=== PATIENT | male | born 1975 | race Hispanic/Latino ===

== ENCOUNTER 2022-09-05 21:07 | Emergency (ER) | payer OTHER ==
[~2022-09-05] VITALS: Ht 165.1 cm; Wt 92.1 kg
[2022-09-05] MEDS ORDERED: ONDANSETRON 4MG INJ IVP ONE (22:30)
[2022-09-05] MEDS ORDERED: 0.9%NACL 1000ML 1,000 ML IV ONE (22:30)
[2022-09-05 23:12] LABS: BASOPHILS % (AUTO) 0.3 % (0.0-5.0); EOSINOPHILS % (AUTO) 2.5 % (0.0-8.0); HEMATOCRIT 43.9 % (42-54); LYMPHOCYTES % (AUTO) 17.9 % (21.0-51.0); MEAN CORPUSCULAR HEMOGLOBIN 28.5 pg (27.0-33.0); MEAN CORPUSCULAR HGB CONC 33.9 g/dL (32.0-36.0); MEAN CORPUSCULAR VOLUME 83.9 fL (79-99); MONOCYTES % (AUTO) 7.1 % (3.0-13.0); NEUTROPHILS % (AUTO) 71.9 % (40.0-77.0); PLATELET COUNT (AUTO) 348 K/uL (130-400); RED BLOOD CELL COUNT(AUTO) 5.23 MIL/uL (4.50-6.20); RED CELL DISTRIBUTION WIDTH 12.5 % (11.0-15.5)
[2022-09-05 23:22] LABS: POTASSIUM 3.9 mmol/L (3.5-5.1)
[2022-09-05 23:27] LABS: ALBUMIN 4.1 g/dL (3.5-5.0); TOTAL PROTEIN, SERUM 8.3 g/dL (6.0-8.3)
[2022-09-05 23:27] LABS: APPEARANCE,URINE CLEAR (CLEAR); BILIRUBIN,URINE NEGATIVE (NEGATIVE); COLOR,URINE YELLOW (YELLOW); GLUCOSE, URINE (UA) NEGATIVE (NEGATIVE); KETONES,URINE 5 mg/dL (NEGATIVE); LEUKOCYTE ESTERASE ,URINE NEGATIVE Leu/uL (NEGATIVE); NITRATE,URINE NEGATIVE (NEGATIVE); OCCULT BLOOD,URINE NEGATIVE (NEGATIVE); PH,URINE 5.5 (5.0-8.0); PROTEIN,URINE 20 mg/dL (NEGATIVE); UROBILINOGEN,URINE 0.2 mg/dL (0.2-1.0)
[2022-09-05] MEDS ORDERED: ONDA4TAB10 PO (23:28)
[2022-09-06 00:46] VITALS: BP 121/74
== END 2022-09-06 00:56 | disposition home or self-care (01) ==
LOC: EDH 21:07
DX: B34.9 Viral infection, unspecified (principal); Z20.822 Contact with and (suspected) exposure to COVID-19
CPT/HCPCS: 99284; 96374; 71045; 87635; 96361; 80053; 85025; 87880; 87804 ×2; 83605; 81003; 36415; C9803; J7030; J2405